=== PATIENT | male | born 1940 | race Caucasian/White ===

== ENCOUNTER 2021-10-09 17:08 | Emergency (ER) | payer MEDICARE, SELFPAY ==
[2021-10-09 17:32] VITALS: BP 146/66; PULSE 64; RESP 18; TEMP 36.6; O2SAT 99
--- NOTE | 2021-10-09 17:59 | ED.EXTPRO ---
HPI - Extremity Problem General Chief complaint: Extremity Injury, Lower Stated complaint: pain in leg leg Time Seen by Provider: 10/09/21 17:45 Source: patient Mode of arrival: ambulatory Limitations: no limitations History of Present Illness HPI Narrative: Mr. Woo is a 80-year-old male patient presenting to the clinic today with complaints of left calf pain x2 hours. He reports that his pain started after walking on his porch. He denies any injury to his calf. He feels as though the back of his calf is spasming. No history of DVT in the past. He is not on any blood thinners. He denies any shortness of breath, headache, or chest pain. Related Data Home Medications Medication Instructions Recorded Confirmed finasteride 5 mg tablet 5 mg PO DAILY 03/26/19 09/30/21 Allergies Allergy/AdvReac Type Severity Reaction Status Date / Time No Known Allergies Allergy Mild Verified 10/09/21 18:07 Review of Systems Review of Systems: Pertinent positives per HPI. Patient denies any fever, chills, rash, headache, visual changes, dizziness, cough, runny nose, sore throat, shortness of breath, chest pain, palpitations, nausea, vomiting, diarrhea, constipation, abdominal pain, or any urinary issues. [facility] Family History Family History Father Family history of lung cancer Patient's father is Mother Patient's mother is Family history of heart disease in male family member before age 55 Social History Social History Smoking packs per day: 1 Smoking cigarettes per day: 20.0 Years smoked: 25 Smoking pack-years: 25.00 Smoking status: Former smoker Second hand tobacco smoke exposure: No Smoking end date: 05/02/13 Alcohol intake: never Substance use: never Comments At the time of my signature, I reviewed and agree with the nursing past medical, surgical, social, and family history. There is no relevant family history pertinent to the patient complaint. Exam Narrative: General: Well-developed, well nourished, in no apparent distress Head: Normocephalic, atraumatic. Cardio: Regular rate and rhythm, s1 and s2 normal, no murmur appreciated. Resp: Clear to auscultation bilaterally, no rhonchi, rales, wheezing or rubs. Musculoskeletal: No deformity, tender to palpation over the left calf muscle, positive Homans' sign, trace of swelling in the lower extremity, no redness or erythema, grossly normal range of motion, muscle strength strong and equal, peripheral pulse strong, no cyanosis, normal gait and station Course Course Emergency Course: Portions of this record may have been created with voice recognition software. Level of Care: Express Care Visit Vital Signs Vital signs: Vital Signs Temperature 36.6 C 10/09/21 17:32 Pulse Rate 64 10/09/21 17:32 Respiratory Rate 18 10/09/21 17:32 Blood Pressure 146/66 H 10/09/21 17:32 Pulse Oximetry 99 10/09/21 17:32 Oxygen Delivery Room Air 10/09/21 17:32 Temperature 36.6 C 10/09/21 17:32 Pulse Rate 64 10/09/21 17:32 Respiratory Rate 18 10/09/21 17:32 Blood Pressure 146/66 H 10/09/21 17:32 Pulse Oximetry 99 10/09/21 17:32 Oxygen Delivery Room Air 10/09/21 17:32 Vital signs reviewed Transfer Transfered to: [facility] Transportation: Other (Private car) Transfer rationale: Left calf pain, positive Homans' sign, rule out DVT Accepting physician: Dr. Jarquin Transfer comments: Patient transferred via private car MDM - Extremity (Nontraumatic) MDM Narrative Medical decision making narrative: At the time of visit patient is resting comfortably on the exam table. He has tenderness to palpation over the left calf as well as a positive Homans' sign. Is not currently on any blood thinners. History of hyperlipidemia and he is a former smoker. At this time I feel that the patient
== END 2021-10-09 18:11 | disposition short-term general hospital (02) ==
PROVIDERS: Emergency Provider Nurse Practitioner Family; PCP Internal Medicine
DX: M79.662 Pain in left lower leg (principal); E78.5 Hyperlipidemia, unspecified; Z87.891 Personal history of nicotine dependence
CPT/HCPCS: 99212; G0463

== ENCOUNTER 2021-10-09 18:27 | Emergency (ER) | payer MEDICARE, SELFPAY ==
[2021-10-09] VITALS (11 sets, daily range): BP systolic 146–160; BP diastolic 60–90; PULSE 56–65; RESP 14–23; TEMP 36.2–36.3; O2SAT 99–100
--- NOTE | 2021-10-09 21:44 | ED.EXTPRO ---
HPI - Extremity Problem General Chief complaint: Extremity Problem,Nontraumatic Stated complaint: L calf pain Time Seen by Provider: 10/09/21 21:02 History of Present Illness HPI Narrative: 80-year-old male presents to the emergency room for evaluation of left calf pain started earlier today. Patient states he was walking when he noticed some cramps in his left calf, describes the pain sharp and stabbing pain. Patient states the pain is significantly improved over the past couple of hours. Patient denies any history of PE/DVT, cancer, long periods of immobility, shortness of breath, difficulty breathing or chest pain. Related Data Home Medications Medication Instructions Recorded Confirmed finasteride 5 mg tablet 5 mg PO DAILY 03/26/19 10/09/21 Allergies Allergy/AdvReac Type Severity Reaction Status Date / Time No Known Allergies Allergy Mild Verified 10/09/21 18:07 Review of Systems Review of Systems: CONSTITUTIONAL: Denies fever, chills, or sweats. EYES: Denies visual changes, redness, or discharge. ENT: Denies rhinorrhea, congestion, sore throat, or otalgia. CARDIOVASCULAR: Denies chest pain, palpitations, or edema. RESPIRATORY: Denies cough or dyspnea. GASTROINTESTINAL: Denies abdominal pain, nausea, vomiting, or diarrhea. GENITOURINARY: Denies dysuria or hematuria. SKIN: Denies rash or itching. MUSCULOSKELETAL: Reports left calf pain NEUROLOGIC: Denies headache, numbness, dizziness, or weakness. PSYCHIATRIC: Denies anxiety or depression. PMFSH Family History Family History Father Family history of lung cancer Patient's father is Mother Patient's mother is Family history of heart disease in male family member before age 55 Social History Social History Smoking packs per day: 1 Smoking cigarettes per day: 20.0 Years smoked: 25 Smoking pack-years: 25.00 Smoking status: Former smoker Second hand tobacco smoke exposure: No Smoking end date: 05/02/13 Alcohol intake: never Substance use: never Exam Narrative: GENERAL: Well-appearing, well-nourished, and in no acute distress. HEAD: Normocephalic, atraumatic. EYES: PERRLA and EOMI. CHEST: Clear to auscultation. No respiratory distress. No wheezes rales or rhonchi HEART: Regular rate and rhythm. No murmur heard. Normal peripheral pulses. ABDOMEN: Soft, nontender, nondistended, normal active bowel sounds. EXTREMITIES: Normal range of motion. No edema. Calf measurements are equal bilaterally LLE: No erythema, no swelling, negative Homans' sign, SKIN: Warm, dry, no rash. NEURO: No focal deficits. Alert and oriented x3. PSYCH: Normal mood and affect. Course Vital Signs Vital signs: Vital Signs Temperature 36.2 C L 10/09/21 18:28 Pulse Rate 65 10/09/21 18:28 Respiratory Rate 14 10/09/21 18:28 Blood Pressure 149/60 H 10/09/21 18:28 Pulse Oximetry 99 10/09/21 18:28 Oxygen Delivery Room Air 10/09/21 18:28 Temperature 36.2 C L 10/09/21 18:28 Pulse Rate 65 10/09/21 18:28 Respiratory Rate 14 10/09/21 18:28 Blood Pressure 149/60 H 10/09/21 18:28 Pulse Oximetry 99 10/09/21 18:28 Oxygen Delivery Room Air 10/09/21 18:28 MDM - Extremity (Nontraumatic) MDM Narrative Medical decision making narrative: 80-year-old male presented to the emergency room complaints of left calf pain. Patient states the pain was worse when he walked. No low suspicion that this is a DVT, however his D-dimer was elevated. Gave patient a shot of little. Lower extremity Doppler was ordered for tomorrow morning at 730. Consulted his PCP, Dr. Malik, and he is wishing to be notified if the ultrasound is positive for DVT. Discharge Plan Discharge Clinical Impression: Pain of left calf Patient Disposition: Home, Self-Care Condition: Stable Instructions: Antibiotic Form Additional
[2021-10-09 22:01] LABS: Basophils Percent Auto 0.2 % (0.2-1.2); Eosinophils Absolute Auto 0.1 K/mm3 (0-0.3); Eosinophils Percent Auto 2.4 % (0-4.4); Hematocrit 34.2 % (42.0-52.0); Hemoglobin 11.3 g/dL (14.0-18.0); Immature Granulocyte Absolute 0.01 K/mm3 (0.00-0.031); Immature Granulocyte Percent A 0.2 % (0-0.5); Lymphocytes Absolute Auto 2.25 K/mm3 (0.9-3.2); Lymphocytes Percent Auto 44.9 % (18.3-44.2); Mean Corpuscular Volume 105.9 fl (80-100); Mean Platelet Volume 9.4 fl (7.4-10.4); Monocytes Absolute Auto 0.4 K/mm3 (0.1-0.6); Neutrophils Absolute Auto 2.3 K/mm3 (1.3-6.7); Neutrophils Percent Auto 45.3 % (45.5-73.1); Platelet Count Result 207 k/mm3 (150-375); Red Blood Count 3.23 M/mm3 (4.6-6.20); Red Cell Distribution Width 13.3 % (11.5-14.5)
[2021-10-09 22:11] LABS: Alanine Aminotransferase 14 U/L (6-50); Albumin Level 4.2 g/dL (3.5-5.1); Alkaline Phosphatase 73 U/L (38-126); Anion Gap 7 mmol/L (8-16); Aspartate Amino Transferase 22 U/L (17-59); Bilirubin,Total 0.4 mg/dL (0.2-1.3); Blood Urea Nitrogen 17 mg/dL (9-20); Calcium 8.2 mg/dL (8.4-10.2); Carbon Dioxide 24 mmol/L (22-30); Chloride 107 mmol/L (98-107); Estimated CRCL calculation 50 ml/min; Estimated Glomerular Filt Rate > 60; Glucose 103 mg/dL (65-110); Sodium 138 mmol/L (137-145)
[2021-10-09 22:14] LABS: D Dimer 2.04 ug/mL (<0.48)
[2021-10-09] MEDS: ENOXAPARIN 40 MG/0.4 ML SYRINGE SUB-Q (22:42)
== END 2021-10-09 22:56 | disposition home or self-care (01) ==
PROVIDERS: Emergency Provider Nurse Practitioner Family; PCP Internal Medicine
DX: M79.662 Pain in left lower leg (principal); Z87.891 Personal history of nicotine dependence
CPT/HCPCS: 36415; 80053; 85025; 85380; 96372; 99283; J1650

== ENCOUNTER 2021-10-10 07:27 | Outpatient (CLI) | payer MEDICARE, SELFPAY ==
--- NOTE | ~2021-10-10 | US_ITS ---
EXAMINATION:US venous doppler LE LT INDICATION:Left leg pain TECHNIQUE: Multiple grayscale, color flow and Doppler images of the left lower extremity deep venous systems were obtained and reviewed. COMPARISON:No prior studies for comparison. FINDINGS: The common femoral, superficial femoral and popliteal veins demonstrate normal respiratory variation, augmentation and compressibility. Color flow is also seen within the posterior tibial, pe roneal, greater saphenous and profunda veins. IMPRESSION: 1: No lower extremity deep venous thrombosis. Reviewed, dictated and finalized at location A.
== END 2021-10-10 07:28 | disposition home or self-care (01) ==
PROVIDERS: PCP Internal Medicine; Visit Provider Internal Medicine
DX: M79.89 Other specified soft tissue disorders (principal)
CPT/HCPCS: 93971